=== PATIENT | male | born 1965 | race Hispanic/Latino ===

== ENCOUNTER 2020-03-14 21:27 | Inpatient (IN) | payer BC ==
[2020-03-15] MEDS ORDERED: Ondansetron PF 4 MG/2 ML Vial IVP PRN (00:07)
[2020-03-15 00:37] VITALS: BMI 31.8
[2020-03-15 01:25] VITALS: BP 135/99
[2020-03-15] MEDS: Sodium Chloride 0.9% 1,000 ML IV SCH ×2 (01:44→10:06)
[2020-03-15] MEDS: Pantoprazole 80 MG in Sodium Chloride 0.9% 100 ML IVPB SCH ×2 (01:44→12:27)
[2020-03-15 02:43] LABS: Platelet Count 12 thou/uL (130-400)
[2020-03-15 02:52] LABS: ALT (SGPT) 62 U/L (8-55); AST (SGOT) 75 U/L (5-34); Albumin 4.5 g/dL (3.5-5.0); Alkaline Phosphatase 58 U/L (40-110); Anion Gap 16 mmol/L (10-20); BUN (Urea Nitrogen) 25 mg/dL (8.4-25.7); Bilirubin, Total 5.7 mg/dL (0.2-1.2); Calc. Creatinine Clearance 85 mL/min (70-130); Calcium 9.5 mg/dL (7.8-10.44); Carbon Dioxide 22 mmol/L (22-29); Cardiac Risk 5.2 (Less than 4.5); Chloride 103 mmol/L (98-107); Cholesterol 152 mg/dl (< 200 Desired); Estimated GFR-MDRD 55; Globulin 3.1 g/dL (2.4-3.5); Glucose 128 mg/dL (70-105); HDL Cholesterol 29 mg/dL (>60 Neg Risk); LDL Cholesterol, Calculated 78 mg/dL; Potassium 4.1 mmol/L (3.5-5.1); Protein, Total 7.6 g/dL (6.0-8.3); Sodium 137 mmol/L (136-145); Triglycerides 226 mg/dL (Less than 150)
[2020-03-15 02:54] LABS: Band 22 % (5-11); Hemoglobin 7.5 g/dL (14.0-18.0); Lymphocytes 16 % (21-51); MDiff Complete? YES; Mean Corpuscular HGB CONC 35.5 g/dL (32.0-36.0); Mean Corpuscular Volume 95.9 fL (78.0-98.0); Mean Platelet Volume 16.1 fL (7.4-10.4); Metamyelocyte 2 % (0-0); Monocytes 4 % (0-10); Neutrophil 56 % (42-75); Nucleated RBC 8 % (0); Platelet Morphology Comment Appears Decreased; Polychromasia MODERATE = 3-4 cells (100X) (0-2/hpf); RBC Distribution Width 20.7 % (11.5-14.5); Reflex for Review?? NO; White Blood Cell (WBC) Count 8.7 thou/uL (4.8-10.8)
[2020-03-15 02:59] LABS: Troponin I 2.159 ng/mL (< 0.028)
[2020-03-15 04:33] LABS: Bacteria/HPF None Seen HPF (None Seen); Bilirubin Negative (Negative); Blood, Urine 3+ (Negative); Clarity Clear (Clear); Glucose, Urine (Dipstick) Normal (Negative); Leukocyte Negative Leu/uL (Negative); Nitrite Negative (Negative); Protein, Urine (Dipstick) 100 mg/dL (Neg-Trace); RBC/HPF 21-50 HPF (0-3); Squamous Epithelial None Seen HPF (0-3); Urobilinogen Normal mg/dL (Less than 2); WBC/HPF 0-3 HPF (0-3)
[2020-03-15 04:38] LABS: Urine Culture Reflex No No
--- NOTE | 2020-03-15 05:57 | HP ---
CHIEF COMPLAINT: Stroke-like symptoms. HISTORY OF PRESENT ILLNESS: Mr. Joe is a 54-year-old male with past medical history of asthma, presented to the [facility] Emergency Room with altered mental status, difficulty speech, left arm weakness. Workup in the emergency room, the patient was found to be anemic with a hemoglobin of 6.4, thrombocytopenic with a platelet count of 5000. The patient also admits that he has been having dark stools. Denies abdominal pain. He has been vomiting, but he denies vomiting blood. Denies fever or chills. Left arm weakness improved while the patient in the emergency room. CT of the brain and CTA brain and neck; no acute finding. A type and cross and 2 units of packed RBCs ordered by ED physician. 1 unit of platelets ordered. Requested to transfer the patient to this medical facility for further workup and obtain Hematology consultation. PAST MEDICAL HISTORY: Bronchial asthma. PAST SURGICAL HISTORY: None. FAMILY HISTORY: Brother had a stroke in his 50s. Father had a stroke in his 50s. SOCIAL HISTORY: Denies smoking, alcohol drinking, or drug use. ALLERGIES: NO KNOWN ALLERGIES. HOME MEDICATIONS: Please see home medication reconciliation form for updated medications. REVIEW OF SYSTEMS: Review of 14 systems negative except what is mentioned in History of Present Illness. PHYSICAL EXAMINATION: GENERAL: The patient is awake, alert, having difficulty in finding words. VITAL SIGNS: Blood pressure is 120/76, heart rate is 90, respiratory rate is 14, and temperature is 98.6. HEAD AND NECK: Normocephalic, atraumatic. NECK: Supple. No JVD. CHEST: Fair bilateral air entry. HEART: S1, S2. Regular. ABDOMEN: Soft, nontender. Bowel sounds present. NEUROLOGIC: Awake, alert, and oriented x4. Motor strength; equal in 4 extremities. Sensation intact. The patient is having difficulty finding words ? aphasia. LABORATORY DATA: As mentioned above in History of Present Illness. IMAGING STUDIES: As mentioned above in History of Present Illness. ASSESSMENT: 1. Acute gastrointestinal bleeding. 2. Anemia secondary to blood loss. 3. Thrombocytopenia. The etiology is not clear. 4. acute, need to be ruled out. 5. Elevated troponin. The patient denies chest pain ? demand ischemia. PLAN: 1. Admit to [facility]. 2. 2 units of packed RBCs and 1 unit of platelets ordered. 3. Monitor hemoglobin, hematocrit, and platelet count. 4. IV proton pump inhibitor drip. 5. Keep n.p.o. 6. Consult GI for evaluation and further management. 7. Consult Hematology for evaluation and further recommendations. 8. Consult Neurology for evaluation and further recommendations. 9. We will obtain MRI of the brain. 10. 2D echo. 11. Serial troponins. 12. Reconcile home medications. 13. DVT prophylaxis, SCDs. 14. Expected length of stay, 2 midnights or more. Job ID: [id number]
[2020-03-15 06:22] LABS: Critical Call Chem Troponin I RESULT DECREASING; Troponin I 1.413 ng/mL (< 0.028)
--- NOTE | 2020-03-15 09:26 | MRI ---
Exam: Brain MRI without contrast HISTORY: Transient ischemic attack COMPARISON: None FINDINGS: Calvarial marrow signal intensity: Appropriate T1 signal Gradient echo sequence: No hemorrhage Brain parenchyma: No mass, mass effect or midline shift. Brain volume, age-appropriate. Low-lying cer ebellar tonsil approximately 5 mm below the foramen magnum. Correlate for Chiari I malformation. Mild kinking of the cervicomedullary junction. Cortical justin-white matter differentiation: Preserved Restricted diffusion: Central arterial flow voids are maintained. Absent restricted diffusion White matter signal intensities: T2, FLAIR white matter hyperintensities due to chronic small vessel ischemic changes Sinuses: Adequate aeration of the paranasal sinuses and mastoid air cells. IMPRESSION: 1. Absent restricted diffusion. No infarct. 2. 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
[2020-03-15 10:10] LABS: Reticulocyte Count 22.6 % (0.5-1.5)
[2020-03-15 10:13] LABS: INR-International Normal Ratio 1.2; PTT 33.2 SEC (22.9-36.1); Prothrombin Time 15.4 SEC (12.0-14.7)
[2020-03-15 10:35] LABS: D-Dimer Test 12.54 *mcg/mL (0.27-0.43)
[2020-03-15 10:36] LABS: Fibrinogen 449 mg/dL (253-463)
[2020-03-15 11:02] LABS: Bilirubin, Direct 1.2 mg/dL (0.1-0.3); Bilirubin, Total 4.7 mg/dL (0.2-1.2)
[2020-03-15 11:25] LABS: FSP-Qualitative ABNORMAL (Normal)
[2020-03-15 11:31] LABS: FSP-Semiquantitative >=20 & <40 mcg/mL (Less than 5)
[2020-03-15 11:58] LABS: Ref Lab Test Ordered ADAMTS13 LEVEL; Reference Lab Name LABCORP
[2020-03-15 12:13] LABS: Reference Lab Name LABCORP
[2020-03-15 12:14] LABS: Ref Lab Test Ordered ADAMTS13 AB TITER
[2020-03-15] MEDS ORDERED: predniSONE 50 MG TAB PO SCH (12:30)
--- NOTE | 2020-03-15 12:35 | CON ---
DATE OF CONSULTATION: REASON FOR CONSULT: Anemia and thrombocytopenia. HISTORY OF PRESENT ILLNESS: Mr. Joe is a pleasant 54-year-old male who presented to the [place] Emergency Room with a 4-day history of nausea, vomiting. He felt that this was food poisoning and thought he was dehydrated. He was extremely weak and having some difficulty thinking. He had a CBC drawn which showed a white count of 8.6, a hemoglobin of 6.4, and a platelet count of 5000. He had 22% nucleated red blood cells. His troponin was 1.2, bilirubin was 4.6. He underwent a CT of his brain which was negative. He was transferred to this facility for further workup. He states he has had some maroon stool over the last several days and he has been placed on a Protonix drip. He was transfused 1 unit of packed RBCs. His hemoglobin increased to 7.5. He had a unit of platelets and his platelet count this morning was 12,000. The patient denies any new medications or supplements. States he has been in his normal state of health until he began having nausea and vomiting. He has been given IV fluids with improvement of his creatinine level. He did have a brain MRI this morning which showed no infarct. He denies shortness of breath. No chest pain. He does have some memory issues, was seen at bedside, eating breakfast at this time. PAST MEDICAL HISTORY: Asthma. PAST SURGICAL HISTORY: None. ALLERGIES: NO KNOWN DRUG ALLERGIES. HOME MEDICATIONS: 1. Tylenol. 2. Flonase. 3. Singulair. 4. Multivitamin. 5. Fexofenadine. 6. Pseudoephedrine p.r.n. FAMILY HISTORY: Both brother and father had a stroke in the 50s. SOCIAL HISTORY: , lives with his spouse. No smoking, alcohol, or illicit drug use. REVIEW OF SYSTEMS: A 10-point review of systems is negative except for noted in HPI. PHYSICAL EXAMINATION: VITAL SIGNS: Temperature 98.5, pulse is 86, respiratory rate 14, blood pressure is 117/77. He is 100% on room air. GENERAL: This is a well-developed, well-nourished male, in no acute distress. HEENT: Normocephalic, atraumatic. Pupils are equal and reactive to light. NECK: Supple. CV: Regular rate and rhythm. LUNGS: Clear. ABDOMEN: Soft and nontender. Bowel sounds are positive. EXTREMITIES: There is no clubbing or cyanosis. SKIN: No rash. HEMATOLOGICAL: There is no petechiae or purpura. NEUROLOGICAL: The patient has difficulty with finding words. PERTINENT LABS AND X-RAYS: Current WBCs are 8.7, hemoglobin 7.5, hematocrit 21.7, MCV is 95.9, platelet count is 12. He has 56% neutrophils, 22% bands, 16% lymphocytes, 2% metamyelocytes, 8% nucleated RBCs. His reticulocyte count is 22.6. PT is 15.4, INR is 1.2, PTT 33.2. Fibrinogen is 449. D-dimer is 12.54. Sodium 137, potassium 4.1, chloride 103, CO2 is 22, BUN is 25, creatinine 1.37, calcium 9.5, bilirubin 5.7, AST 75, ALT 62, LDH is 1784. Troponin is 1.413. Serum total protein is 7.6, albumin 4.5, globulin 3.1. Urine shows 3+ blood. Radiology per HPI. 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 DISCUSSION: Case has been discussed in detail with Dr. Delgado. [place] of peripheral smear shows an increased schistocytes. He has a PLASMIC score of 6/7. This is a 72% risk of TTP. He will be given 2 units of FFP and transferred to a facility with plasmapheresis initiated. Case was discussed in detail with patient, and was notified and updated. I spoke with Dr. Reinoso, hospitalist. Dr. Delgado will be discussing with the facility who will be accepting Mr. Joe. Thank you for the consult. Job ID: [id number] [facility]
--- NOTE | 2020-03-15 13:03 | CON ---
DATE OF CONSULTATION: REASON FOR CONSULTATION: Stroke-like symptoms. HISTORY OF PRESENT ILLNESS: Mr. Joe is a 54-year-old male with past medical history significant for asthma, presented to the [facility] Emergency Room with altered mental status and problems with speech, there is a concern also about left arm weakness. He was seen in the emergency room and was found to have hemoglobin of 6.4 and was thrombocytopenic with platelet count of 5000. The patient also admits to having dark stools. The left arm weakness improved while he was in the hospital. CT scan of the brain was done, which was negative. The CTA of the head and neck was also negative for acute finding. He was given 2 units of packed red blood cells, which improved his symptoms. Per the patient, he has been having intermittent episodes of confusion, during which he forgets the children name and other basic details on and off since , but it became worse since yesterday. The patient does have nausea and anorexia, but denies vomiting, headache, dizziness, or vertigo. Hospitalist ROS - Review of Systems Constitutional: denies: fever, chills, sweats, weakness, malaise, other Eyes: denies: pain, vision change, conjunctivae inflammation, eyelid inflammation, redness, other ENT: denies: ear pain, ear discharge, nose pain, nose discharge, nose congestion , mouth pain, mouth swelling, throat pain, throat swelling, other Cardiovascular: denies: chest pain, palpitations, orthopnea, paroxysmal noc. dyspnea, edema, light headedness, other Gastrointestinal: denies: nausea, vomiting, abdominal pain, diarrhea, constipation, melena, hematochezia, other Genitourinary: denies: dysuria, frequency, incontinence, hematuria, retention, other Musculoskeletal: denies: neck pain, shoulder pain, arm pain, back pain, hand pain, leg pain, foot pain, other Skin: denies: rash, lesions, lam, bruising, other Neurological: reports: confusion - Medication Medications: Active Medications Generic Name Dose Route Start Last Admin Trade Name Freq PRN Reason Stop Dose Admin Sodium Chloride 1,000 mls @ 100 mls/hr 03/15/20 00:00 03/15/20 10:06 Normal Saline 0.9% IV 1,000 mls .Q10H GABRIEL Administration Pantoprazole Sodium 80 mg/ 100 mls @ 10 mls/hr 03/15/20 01:30 03/15/20 12:27 Sodium Chloride IVPB 100 mls INF GABRIEL Administration Ondansetron HCl 4 mg 03/15/20 00:07 03/15/20 08:45 Zofran IVP 4 mg Q6H PRN Administration Nausea/Vomiting Sodium Chloride 10 ml 03/15/20 00:00 03/15/20 01:45 Flush - Normal Saline IVF 10 ml PRN PRN Administration Saline Flush - Exam General Appearance: awake alert Eye: PERRL, anicteric sclera ENT: normocephalic atraumatic, no oropharyngeal lesions, moist mucosa Neck: supple, symmetric, no JVD, no thyromegaly, no lymphadenopathy, no carotid bruit Heart: RRR, no murmur, no gallops, no rubs, normal peripheral pulses Respiratory: CTAB, no wheezes, no rales, no ronchi, normal chest expansion Gastrointestinal: soft, non-tender, non-distended Extremities: no cyanosis, no clubbing, no edema Skin: normal turgor, no lesions, no rashes Neurological: cranial nerve grossly intact, normal sensation to touch, no weakness, no focal deficits, no new deficit Neurological - other findings: speech slurred resolved arm weakness resolved Musculoskeletal: normal tone, normal strength, no muscle wasting Psychiatric: normal affect, normal behavior, A&O x 3 Hospitalist Results - Labs Result Diagrams: 03/15/20 08:15 03/15/20 02:19 Lab results: WBC 8.7 thou/uL (4.8-10.8) 03/15/20 02:19 Hgb 7.5 g/dL (14.0-18.0) L 03/15/20 02:19 Hct 21.7 % (42.0-52.0) L 03/15/20 08:15 MCV 95.9 fL (78.0-98.0) 03/15/20 02:19 Plt Count 12 thou/uL (130-400) L* 03/15/20 02:19 Band Neuts % (Manual) 22 % (5-11) H 03/15/20 02:19 Sodium 137 mmol/L (136-145) 03/15/20 02:19 Potassium 4.1 mmol/L (3.5-5.1) 03/15/20 02:19 Chloride 103 mmol/L (98-107) 03/15/20 02:19 Carbon Dioxide 22 mmol/L (22-29) 03/15/20 02:19 BUN 25 mg/dL (8.4-25.7) 03/15/20 02:19 Creatinine 1.37 mg/dL (0.7-1.3) H 03/15/20 02:19 Glucose 128 mg/dL (70-105) H 03/15/20 02:19 Calcium 9.5 mg/dL (7.8-10.44) 03/15/20 02:19 Total Bilirubin 4.7 mg/dL (0.2-1.2) H 03/15/20 09:52 AST 75 U/L (5-34) H 03/15/20 02:19 ALT 62 U/L (8-55) H 03/15/20 02:19 Alkaline Phosphatase 58 U/L (40-110) 03/15/20 02:19 Troponin I 1.413 ng/mL (< 0.028) H* 03/15/20 05:41 Serum Total Protein 7.6 g/dL (6.0-8.3) 03/15/20 02:19 Albumin 4.5 g/dL (3.5-5.0) 03/15/20 02:19 Urine Ketones Negative mg/dL (Negative) 03/15/20 04:00 Urine Blood 3+ (Negative) A 03/15/20 04:00 Urine Nitrite Negative (Negative) 03/15/20 04:00 Ur Leukocyte Esterase Negative Carina/uL (Negative) 03/15/20 04:00 Urine RBC 21-50 HPF (0-3) A 03/15/20 04:00 Urine WBC 0-3 HPF (0-3) 03/15/20 04:00 Ur Squamous Epith Cells None Seen HPF (0-3) 03/15/20 04:00 Urine Bacteria None Seen HPF (None Seen) 03/15/20 04:00 - Radiology Interpretation MRI - head Status: image reviewed by me (No acute intracranial pathology) ASSESSMENT AND PLAN: Mr. Gil Joe was consulted because of Stroke-like symptoms in the setting of anemia and thrombocytopenia, requiring blood transfusion. He also has history of anorexia in the setting of nausea and dehydaration/ anorexia for the last few days, which may contribute to confusion. 1. Consider EEG to see if there is any evidence of interictal epileptiform discharges. 2. MRI of the brain reviewed, which was negative for acute intracranial pathology. 3. Neuro checks every 4 hours. 4. Continue home medications. 5. Continue medical management per Primary Team and Hematology. The plan discussed with the family practice attending and the patient in detail. We will continue to follow. Thank you for the consult. Job ID: [id number]
--- NOTE | 2020-03-15 13:18 | PDOC.HHP ---
Hospitalist ROS - Review of Systems Constitutional: denies: fever, chills, sweats, weakness, malaise, other Eyes: denies: pain, vision change, conjunctivae inflammation, eyelid inflammation, redness, other ENT: denies: ear pain, ear discharge, nose pain, nose discharge, nose congestion , mouth pain, mouth swelling, throat pain, throat swelling, other Cardiovascular: denies: chest pain, palpitations, orthopnea, paroxysmal noc. dyspnea, edema, light headedness, other Gastrointestinal: denies: nausea, vomiting, abdominal pain, diarrhea, constipation, melena, hematochezia, other Genitourinary: denies: dysuria, frequency, incontinence, hematuria, retention, other Musculoskeletal: denies: neck pain, shoulder pain, arm pain, back pain, hand pain, leg pain, foot pain, other Skin: denies: rash, lesions, lam, bruising, other Neurological: reports: confusion - Medication Medications: Active Medications Generic Name Dose Route Start Last Admin Trade Name Freq PRN Reason Stop Dose Admin Sodium Chloride 1,000 mls @ 100 mls/hr 03/15/20 00:00 03/15/20 10:06 Normal Saline 0.9% IV 1,000 mls .Q10H GABRIEL Administration Pantoprazole Sodium 80 mg/ 100 mls @ 10 mls/hr 03/15/20 01:30 03/15/20 12:27 Sodium Chloride IVPB 100 mls INF GABRIEL Administration Ondansetron HCl 4 mg 03/15/20 00:07 03/15/20 08:45 Zofran IVP 4 mg Q6H PRN Administration Nausea/Vomiting Sodium Chloride 10 ml 03/15/20 00:00 03/15/20 01:45 Flush - Normal Saline IVF 10 ml PRN PRN Administration Saline Flush - Exam General Appearance: awake alert Eye: PERRL, anicteric sclera ENT: normocephalic atraumatic, no oropharyngeal lesions, moist mucosa Neck: supple, symmetric, no JVD, no thyromegaly, no lymphadenopathy, no carotid bruit Heart: RRR, no murmur, no gallops, no rubs, normal peripheral pulses Respiratory: CTAB, no wheezes, no rales, no ronchi, normal chest expansion Gastrointestinal: soft, non-tender, non-distended Extremities: no cyanosis, no clubbing, no edema Skin: normal turgor, no lesions, no rashes Neurological: cranial nerve grossly intact, normal sensation to touch, no weakness, no focal deficits, no new deficit Neurological - other findings: speech slurred resolved arm weakness resolved Musculoskeletal: normal tone, normal strength, no muscle wasting Psychiatric: normal affect, normal behavior, A&O x 3 Hospitalist Results - Labs Result Diagrams: 03/15/20 08:15 03/15/20 02:19 Lab results: WBC 8.7 thou/uL (4.8-10.8) 03/15/20 02:19 Hgb 7.5 g/dL (14.0-18.0) L 03/15/20 02:19 Hct 21.7 % (42.0-52.0) L 03/15/20 08:15 MCV 95.9 fL (78.0-98.0) 03/15/20 02:19 Plt Count 12 thou/uL (130-400) L* 03/15/20 02:19 Band Neuts % (Manual) 22 % (5-11) H 03/15/20 02:19 Sodium 137 mmol/L (136-145) 03/15/20 02:19 Potassium 4.1 mmol/L (3.5-5.1) 03/15/20 02:19 Chloride 103 mmol/L (98-107) 03/15/20 02:19 Carbon Dioxide 22 mmol/L (22-29) 03/15/20 02:19 BUN 25 mg/dL (8.4-25.7) 03/15/20 02:19 Creatinine 1.37 mg/dL (0.7-1.3) H 03/15/20 02:19 Glucose 128 mg/dL (70-105) H 03/15/20 02:19 Calcium 9.5 mg/dL (7.8-10.44) 03/15/20 02:19 Total Bilirubin 4.7 mg/dL (0.2-1.2) H 03/15/20 09:52 AST 75 U/L (5-34) H 03/15/20 02:19 ALT 62 U/L (8-55) H 03/15/20 02:19 Alkaline Phosphatase 58 U/L (40-110) 03/15/20 02:19 Troponin I 1.413 ng/mL (< 0.028) H* 03/15/20 05:41 Serum Total Protein 7.6 g/dL (6.0-8.3) 03/15/20 02:19 Albumin 4.5 g/dL (3.5-5.0) 03/15/20 02:19 Urine Ketones Negative mg/dL (Negative) 03/15/20 04:00 Urine Blood 3+ (Negative) A 03/15/20 04:00 Urine Nitrite Negative (Negative) 03/15/20 04:00 Ur Leukocyte Esterase Negative Carina/uL (Negative) 03/15/20 04:00 Urine RBC 21-50 HPF (0-3) A 03/15/20 04:00 Urine WBC 0-3 HPF (0-3) 03/15/20 04:00 Ur Squamous Epith Cells None Seen HPF (0-3) 03/15/20 04:00 Urine Bacteria None Seen HPF (None Seen) 03/15/20 04:00 - Radiology Interpretation MRI - head Status: image reviewed by me (No acute intracranial pathology)
--- NOTE | 2020-03-15 13:42 | PDOC.EVN ---
Event Note - Event Note Event Note: Patient seen and examined. Feeling better since transfusion in [place] ER. Spoke with Dr. Petty, MRI neg, no stroke, will check EEG to make sure no seizure activity but likely metabolic encephalopathy from other disease processes. Spoke with Martha Cuadra. Patient likely TTP. Will need transfer to a facility that can do Plasmapharesis. Dr. Delgado to arrange. Will transfer once facility accepts.
[2020-03-15] MEDS ORDERED: Pantoprazole 80 MG, Admixture Fee 1 EACH in Sodium Chloride 0.9% 100 ML IVPB SCH (14:00)
--- NOTE | 2020-03-15 16:42 | EEG ---
Referring Physician: Ying COREA EEG # [id number] TEST TYPE: ROUTINE PORTABLE INPATIENT REPORT: This EEG was performed using 24 channel LiquidPiston video digital EEG machine with 24 disc electrodes. This was a routine EEG recording. Digital analysis of the EEG was done with spike and seizure detection which does not reveal any abnormalities. BACKGROUND: The posterior background rhythm is 8.5-9 hertz. The background rhythm attenuates with eye opening and enhances with eye closure. This is a nonsustained posterior background rhythm. HYPERVENTILATION: No significant response seen with hyperventilation. PHOTIC STIMULATION: Bioccipital symmetric driving response is observed. SLEEP: Drowsiness is observed. EEG DIAGNOSIS: 1.) Occasional irregular theta activity is seen during the recording. 2.) Nonsustained posterior background rhythm. CLINICAL INTERPRETATION: THIS IS EEG IS CONSISTENT WITH MILD GENERALIZED NONSPECIFIC CEREBRAL DYSFUNCTION. NO ICTAL OR INTERICTAL EPILEPTIFORM ABNORMALITIES SEEN DURING THE RECORDING. Coater Helper:QUOC Web Interface Developer: [email or web address] [email or web address]
[2020-03-15 16:58] LABS: Hemoglobin 6.6 g/dL (14.0-18.0); Mean Corpuscular HGB CONC 35.3 g/dL (32.0-36.0); Mean Corpuscular Hemoglobin 34.6 pg (27.0-31.0); Mean Corpuscular Volume 98.2 fL (78.0-98.0); Mean Platelet Volume 18.3 fL (7.4-10.4); Platelet Count 8 thou/uL (130-400); RBC Distribution Width 23.7 % (11.5-14.5)
[2020-03-15] MEDS ORDERED: Diazepam 10 MG/2 ML SYRINGE IVP SCH ×2 (17:00)
--- NOTE | 2020-03-15 17:10 | CT ---
CT BRAIN WITHOUT CONTRAST: 03/15/20 HISTORY: TIA. Aphasia and right sided weakness. TECHNIQUE: Multiple contiguous axial images were obtained in a CT of the brain without contrast. FINDINGS: The brain demonstrates normal morphology and attenuation without focal lesions or confluent areas of infarction. There is no evidence of hydrocephalus, intracranial hemorrhage or extra-axial fluid colle ctions. The calvarium and overlying soft tissues are unremarkable. The visualized paranasal sinuses a nd mastoid air cells are well aerated. IMPRESSION: No evidence of acute intracranial abnormality. POS: UNAA
[2020-03-15 17:17] LABS: ALT (SGPT) 64 U/L (8-55); AST (SGOT) 60 U/L (5-34); Albumin 4.3 g/dL (3.5-5.0); Alkaline Phosphatase 57 U/L (40-110); Anion Gap 16 mmol/L (10-20); BUN (Urea Nitrogen) 26 mg/dL (8.4-25.7); Bilirubin, Total 5.1 mg/dL (0.2-1.2); Calc. Creatinine Clearance 83 mL/min (70-130); Carbon Dioxide 22 mmol/L (22-29); Chloride 105 mmol/L (98-107); Estimated GFR-MDRD 54; Glucose 113 mg/dL (70-105); Potassium 3.8 mmol/L (3.5-5.1); Protein, Total 7.3 g/dL (6.0-8.3); Sodium 139 mmol/L (136-145)
[2020-03-15 17:27] LABS: Anisocytosis MODERATE=16-30 cells (100X) (0-5/hpf); Band 30 % (5-11); Eosinophils 1 % (0-10); Lymphocytes 8 % (21-51); MDiff Complete? YES; Metamyelocyte 1 % (0-0); Monocytes 4 % (0-10); Neutrophil 56 % (42-75); Nucleated RBC 18 % (0); Platelet Morphology Comment Appears Decreased; Polychromasia MODERATE = 3-4 cells (100X) (0-2/hpf); Schistocytes SLIGHT = 2-5 cells (100X) (0-1/hpf); Spherocytes SLIGHT = 1-5 cells (100X) (None Seen); White Blood Cell (WBC) Count 5.8 thou/uL (4.8-10.8)
--- NOTE | 2020-03-15 17:44 | CON ---
DATE OF CONSULTATION: 03/15/2020 REASON FOR CONSULTATION: History of melena, dizziness, nausea, vomiting, anemia due to blood loss. HISTORY OF PRESENT ILLNESS: Gil Joe is a very pleasant 54-year-old male hospitalized with a history of foggy mind, dizziness, numbness of the left arm, etc. He initially went to the ER at the [facility]. He was found to be profoundly anemic. His blood count showed thrombocytopenia and his hemoglobin was as low as 6.4. He was given 2 units of blood transfusion. He had an MRI of the head that was negative for any stroke. The patient has had melenic stool this past Friday. He states he had 3 or 4 stools on Friday. He also felt nauseous and was dry heaving most Friday and Friday. Also felt dizzy over the last couple of days. No history of loss of consciousness. The patient had no similar episodes in the past. No history of peptic ulcer in the past. No history of abdominal pain or nausea. No heartburn. Since admission, he has been seen by escort patients because of thrombocytopenia. The impression by escort patients is probably TTP. Plan is being made to [facility] to [facility] . No relevant history. ALLERGIES: NONE. SOCIAL HISTORY: The patient does not smoke or drink alcohol. MEDICAL ILLNESS: Bronchial asthma, on Flonase, Singulair, and also takes cetirizine. No other medical illness. No major surgeries. FAMILY HISTORY: Brother and father both had stroke. No family history of liver cirrhosis. No leukemia or any other problems in the family. REVIEW OF SYSTEMS: A 10-point system reviewed. 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 No history of any TIA, and no history of any syncope. No dysarthria. RESPIRATORY: No history of any chronic coughing. No hemoptysis. Has history of asthma and pretty stable. CARDIOVASCULAR: No chest pain. No palpitation. No dyspnea, orthopnea, or PND. : No dysuria, hematuria. MUSCULOSKELETAL: Occasional back pain, takes Aleve once in a while. NEUROPSYCHIATRY: Not known. PHYSICAL EXAMINATION: GENERAL: He is awake and communicative. He is in no distress. VITAL SIGNS: Afebrile, pulse is 91, blood pressure 120/80. HEENT: Conjunctivae clear. NECK: Supple. No adenitis or thyromegaly noted. CARDIOVASCULAR: First and second heart sounds. LUNGS: Clear to auscultation. ABDOMEN: Soft. No organomegaly. No tenderness. No masses. Bowel sounds are normal. EXTREMITIES: Reveal no edema. LABORATORY DATA: Show severe thrombocytopenia. The platelet count today is 12,000. His CBC, WBC 8700, hemoglobin 7.5, hematocrit 21.1, MCV 95.9, platelet count 112,000, polymorphs 56, bands 22, lymphocytes 16, monocytes 4. Chemistry panel has normal lytes, BUN is 25, creatinine 1.37, glucose 128, calcium 9.5. Bilirubin 5.7, AST 75, ALT 62, alkaline phosphatase 58. Triglycerides 226. IMPRESSION: 1. A 54-year-old [place] male with a history of dizziness, foggy mind, and also some numbness of the left upper arm. His MRI is negative. Symptoms resolved. 2. History of dark stool over the weekend with some dizziness, dry heaving. 3. Anemia due to blood loss. 4. Severe thrombocytopenia, most likely idiopathic thrombocytopenic purpura per the Hematology input. RECOMMENDATIONS: 1. PPI. 2. No endoscopic studies at the present time as he is being transferred to [facility] later on today. Job ID: [id number]
[2020-03-15 18:35] VITALS: TEMP 98.7
== END 2020-03-15 19:25 | disposition short-term general hospital (02) | DRG 813 ==
LOC: EDBD → OBSVTOIN 23:29 → IMCU/EMU 23:29
PROVIDERS: ADMIT Internal Medicine; ATTEND Internal Medicine
PROC: 30233N1 Transfusion of Nonautologous Red Blood Cells into Peripheral Vein, Percutaneous Approach (ICD-10-PCS; principal; 2020-03-14)
DX: D69.3 Immune thrombocytopenic purpura (principal); G93.41 Metabolic encephalopathy; K92.2 Gastrointestinal hemorrhage, unspecified; D62 Acute posthemorrhagic anemia; J45.909 Unspecified asthma, uncomplicated; R63.0 Anorexia; Z79.899 Other long term (current) drug therapy; Z68.31 Body mass index [BMI] 31.0-31.9, adult
CPT/HCPCS: 36415; 36430; 70450; 70551; 80053; 80061; 81001; 82247; 83010; 83615; 84484; 85046; 85362; 85384; 85610; 85730; 86850; 86880; 86900; 86901; 88184; 95816; 95819; C9113; J2405; J3490; J7512; P9016; P9059